=== PATIENT | male | born 1985 | race Caucasian/White ===

== ENCOUNTER 2018-07-19 15:48 | Emergency (ER) | payer OTHER ==
[2018-07-19] MEDS ORDERED: Lidocaine 1% w/Epinephrine 1:100K 20 ML VIAL ONE (17:25)
== END 2018-07-19 19:16 | disposition home or self-care (01) ==
LOC: ERS 15:48
DX: L05.91 Pilonidal cyst without abscess (principal); F17.210 Nicotine dependence, cigarettes, uncomplicated
CPT/HCPCS: 10080; J2001

== ENCOUNTER 2021-08-31 09:00 | Outpatient (CLI) | payer OTHER | END 2021-08-31 09:01 | disposition home or self-care (01) | LOC: BICMRI 09:00 | PROVIDERS: ATTEND Family Medicine | DX: S63.521D Sprain of radiocarpal joint of right wrist, subsequent encounter (principal) ==

== ENCOUNTER 2021-10-11 07:36 | Outpatient (CLI) | payer OTHER | END 2021-10-11 07:37 | disposition home or self-care (01) | LOC: RAD 07:36 | PROVIDERS: ATTEND Family Medicine | DX: S63.521D Sprain of radiocarpal joint of right wrist, subsequent encounter (principal) | CPT/HCPCS: 25246 ==